=== PATIENT | male | born 1945 | race Caucasian/White ===

== ENCOUNTER 2019-09-01 12:01 | Inpatient (IN) | payer MEDICARE, OTHER ==
[~2019-09-01] VITALS: Ht 177.8 cm; Wt 87.5 kg
[~2019-09-01 12:01] MED LIST: CYAN100023 PO; DONE10TA40 PO; RIS1T PO; TEMA30CA PO
[2019-09-01] MEDS ORDERED: SODIUM CHLORIDE 0.9% 500 ML IV ONE (12:40)
[2019-09-01 13:22] LABS: Basophils # (auto) 0 uL; Basophils % (auto) 0.2 % (0.0-2.0); Eosinophils # (auto) 0 uL; Eosinophils % (auto) 0.1 % (0.0-7.0); Hematocrit 33.8 % (41.0-53.0); Hemoglobin 10.9 g/dL (13.5-17.5); Lymphocytes # (auto) 1.1 uL; Lymphocytes % (auto) 11.6 % (10.0-50.0); Mean Corpuscular Hemoglobin 31.7 pg (28.0-32.0); Mean Corpuscular Hgb Conc. 32.2 g/dL (32.0-36.0); Mean Corpuscular Volume 98.4 fL (80.0-100.0); Monocytes # (auto) 0.7 uL; Monocytes % (auto) 6.9 % (0.0-12.0); Neutrophils # (auto) 7.9 uL; Neutrophils % (auto) 81.2 % (37.0-80.0); Platelet Count (auto) 277 10^3/uL (140-450); Red Blood Cells 3.44 10^6/uL (4.5-5.90); Red Cell Distribution Width 14.3 % (11.8-14.3); White Blood Cell 9.8 10^3/uL (4.4-10.8)
[2019-09-01 13:43] LABS: Alanine Aminotransferase 10 U/L (16-61); Albumin 2.5 g/dL (3.4-5.0); Anion Gap 8 (5-15); Aspartate Aminotransferase 11 U/L (15-37); Blood Urea Nitrogen 15 mg/dL (7-18); Calcium 8.5 mg/dL (8.5-10.1); Carbon Dioxide 26 mmol/L (21-32); Chloride 110 mmol/L (98-107); Glucose 133 mg/dL (74-106); Potassium 3.4 mmol/L (3.5-5.1); Sodium 144 mmol/L (136-145)
[2019-09-01 13:47] LABS: Alkaline Phosphatase 71 U/L (45-117); BUN/Creatinine Ratio 20.3; Bilirubin, Total 0.2 mg/dL (0.2-1.0); GFR African American 133 mL/min; GFR Non-African American 110 mL/min; Total Protein 6.9 g/dL (6.4-8.2)
[2019-09-01 14:08] LABS: Urine Bacteria MANY /hpf (None Seen); Urine Blood 2+ /uL (Negative); Urine Hyaline Cast MANY /lpf (0 - 2); Urine Mucus FEW (None Seen); Urine Specific Gravity 1.017 (1.001-1.035); Urine WBC 1929 /hpf (0 - 3); Urine WBC Clumps PRESENT /hpf (None Seen)
[2019-09-01] MEDS ORDERED: cefTRIAXone 1GM/50ML D5W 50 ML IV ONE (17:00)
[2019-09-01] MEDS: SODIUM CHLORIDE 0.9% 1,000 ML IV SCH ×2 (17:38→18:46)
[2019-09-01] MEDS ORDERED: MORPHINE SULF INJ 2 MG/ML SYRINGE 1ML IV PRN ×2 (17:45)
[2019-09-01] MEDS ORDERED: NITROGLYCERIN 0.4 MG SL TAB SL PRN (17:45)
[2019-09-01] MEDS ORDERED: ACETAMINOPHEN 500 MG TAB PO PRN (17:45)
[2019-09-01] MEDS ORDERED: ONDANSETRON HCL 4 MG/2 ML VIAL IV PRN (17:45)
[2019-09-01] MEDS ORDERED: POTASSIUM EFFERVESENT TAB 25 MEQ PO ONE (18:00)
[2019-09-01] MEDS: ENSURE CLEAR Mixed Berry 8oz Carton PO SCH (18:00)
[2019-09-01] MEDS ORDERED: risperiDONE 1 MG TAB PO SCH (18:00)
[2019-09-01] MEDS: HYDROcodone-ACET 5/325MG TAB PO PRN (18:07)
[2019-09-01 20:15] VITALS: BP 139/93
[2019-09-01 20:46] VITALS: BP 139/93
[2019-09-01] MEDS ORDERED: PNEUMOCOCCAL VACC POLYS 25 MCG/0.5 ML VIAL IM SCH (21:15)
[2019-09-01] MEDS: DONEPEZIL HYDROCHLORIDE 5 MG TAB PO SCH (21:31)
[2019-09-02 04:46] VITALS: BP 133/84
[2019-09-02] MEDS: HYDROcodone-ACET 5/325MG TAB PO PRN ×2 (06:08→16:57)
[2019-09-02 06:30] LABS: Basophils # (auto) 0 uL; Basophils % (auto) 0.2 % (0.0-2.0); Eosinophils # (auto) 0.1 uL; Eosinophils % (auto) 1.6 % (0.0-7.0); Hematocrit 32.3 % (41.0-53.0); Hemoglobin 10.7 g/dL (13.5-17.5); Lymphocytes % (auto) 38.2 % (10.0-50.0); Mean Corpuscular Hemoglobin 32.2 pg (28.0-32.0); Mean Corpuscular Volume 97.6 fL (80.0-100.0); Monocytes # (auto) 0.7 uL; Neutrophils # (auto) 4.1 uL; Nucleated Red Blood Cells % 0.1 %; Platelet Count (auto) 260 10^3/uL (140-450); Red Blood Cells 3.31 10^6/uL (4.5-5.90)
[2019-09-02 06:51] LABS: Calcium 8.7 mg/dL (8.5-10.1); Potassium 3.9 mmol/L (3.5-5.1)
[2019-09-02 06:53] LABS: BUN/Creatinine Ratio 25.4
[2019-09-02 08:00] VITALS: BP 121/79
[2019-09-02 09:00] VITALS: BP 121/79
[2019-09-02] MEDS: cefTRIAXone 1GM/50ML D5W 50 ML IV SCH (09:29)
[2019-09-02] MEDS: SODIUM CHLORIDE 0.9% 1,000 ML IV SCH ×2 (09:38→15:12)
[2019-09-02] MEDS: FAMOTIDINE 20 MG TAB PO SCH (10:10)
[2019-09-02] MEDS: ENSURE CLEAR Mixed Berry 8oz Carton PO SCH ×3 (10:21→18:00)
[2019-09-02 13:00] VITALS: BP 128/72
[2019-09-02] MEDS ORDERED: APIXABAN 5 MG TAB PO ONE (14:30)
[2019-09-02 17:00] VITALS: BP 107/78
[2019-09-02 17:28] LABS: % Iron Saturation 16.8 % (20-55)
[2019-09-02 21:44] VITALS: BP 101/64
[2019-09-02] MEDS: DONEPEZIL HYDROCHLORIDE 5 MG TAB PO SCH (22:08)
[2019-09-02] MEDS: APIXABAN 5 MG TAB PO SCH (22:09)
[2019-09-03] MEDS: SODIUM CHLORIDE 0.9% 1,000 ML IV SCH ×3 (00:32→12:45)
[2019-09-03] MEDS: HYDROcodone-ACET 5/325MG TAB PO PRN ×3 (04:20→22:56)
[2019-09-03 04:51] VITALS: BP 128/81
[2019-09-03 05:59] LABS: Basophils # (auto) 0 uL; Basophils % (auto) 0.3 % (0.0-2.0); Eosinophils # (auto) 0.2 uL; Eosinophils % (auto) 2.7 % (0.0-7.0); Hematocrit 30.8 % (41.0-53.0); Hemoglobin 10.3 g/dL (13.5-17.5); Lymphocytes # (auto) 2.9 uL; Lymphocytes % (auto) 45.9 % (10.0-50.0); Mean Corpuscular Hemoglobin 32.4 pg (28.0-32.0); Mean Corpuscular Hgb Conc. 33.3 g/dL (32.0-36.0); Mean Corpuscular Volume 97.3 fL (80.0-100.0); Monocytes # (auto) 0.5 uL; Monocytes % (auto) 8.3 % (0.0-12.0); Neutrophils # (auto) 2.7 uL; Neutrophils % (auto) 42.8 % (37.0-80.0); Nucleated Red Blood Cells % 0.1 %; Platelet Count (auto) 263 10^3/uL (140-450); Red Blood Cells 3.17 10^6/uL (4.5-5.90); Red Cell Distribution Width 14.4 % (11.8-14.3); White Blood Cell 6.3 10^3/uL (4.4-10.8)
[2019-09-03 06:30] LABS: BUN/Creatinine Ratio 33.3; Calcium 8.2 mg/dL (8.5-10.1); Magnesium 1.8 mg/dL (1.6-2.6); Potassium 3.7 mmol/L (3.5-5.1)
[2019-09-03 08:00] VITALS: BP 127/67
[2019-09-03] MEDS: ENSURE CLEAR Mixed Berry 8oz Carton PO SCH ×3 (08:00→18:29)
[2019-09-03 09:00] VITALS: BP 127/67
[2019-09-03] MEDS: cefTRIAXone 1GM/50ML D5W 50 ML IV SCH (10:33)
[2019-09-03] MEDS: FAMOTIDINE 20 MG TAB PO SCH (10:34)
[2019-09-03] MEDS: APIXABAN 5 MG TAB PO SCH ×2 (10:37→21:39)
[2019-09-03] MEDS ORDERED: MAGNESIUM SULFATE 1GM/100ML 100 ML IV ONE (12:45)
[2019-09-03] MEDS ORDERED: POTASSIUM CHL 20 Meq TABLET PO ONE (12:45)
[2019-09-03 13:00] VITALS: BP 136/68
[2019-09-03] MEDS: AMOXICILLIN/CLAVULAN 500 MG TAB PO SCH ×2 (14:00→21:40)
[2019-09-03] MEDS ORDERED: OMNIPAQUE ORAL SOLN 500ml 12mg/ml PO ONE (15:58)
[2019-09-03 17:00] VITALS: BP 143/88
[2019-09-03] MEDS ORDERED: IOHEXOL 300 MG/ML 100ML BOTTLE IJ ONE (17:38)
[2019-09-03] MEDS: PROMETHAZINE HCL 25 MG/ML 1ML IV PRN (18:29)
[2019-09-03] MEDS: DONEPEZIL HYDROCHLORIDE 5 MG TAB PO SCH (21:38)
[2019-09-03 22:00] VITALS: BP 138/90
[2019-09-04] MEDS: SODIUM CHLORIDE 0.9% 1,000 ML IV SCH (03:03)
[2019-09-04 05:00] VITALS: BP_SYST 127; BP_SYST 96; BP_DIAS 63; BP_DIAS 72
[2019-09-04] MEDS: D5W/SOD CHLO 0.9% 1,000 ML IV SCH ×2 (05:32→18:09)
[2019-09-04] MEDS: AMOXICILLIN/CLAVULAN 500 MG TAB PO SCH ×3 (05:33→21:10)
[2019-09-04 07:01] LABS: Magnesium 1.9 mg/dL (1.6-2.6); Potassium 3.7 mmol/L (3.5-5.1)
[2019-09-04] MEDS: ENSURE CLEAR Mixed Berry 8oz Carton PO SCH ×3 (08:00→18:09)
[2019-09-04 09:00] VITALS: BP 149/89
[2019-09-04] MEDS: FAMOTIDINE 20 MG TAB PO SCH (10:07)
[2019-09-04] MEDS: APIXABAN 5 MG TAB PO SCH ×2 (10:07→21:10)
[2019-09-04] MEDS: PROMETHAZINE HCL 25 MG/ML 1ML IV PRN (10:40)
[2019-09-04 12:00] VITALS: BP 135/76
[2019-09-04] MEDS ORDERED: POTASSIUM CHL 20MEQ/100ML 100 ML IV ONE (12:45)
[2019-09-04] MEDS ORDERED: MAGNESIUM SULFATE 1GM/100ML 100 ML IV ONE (12:45)
[2019-09-04] MEDS ORDERED: LACTULOSE 20Gm/30ML SOLN PO PRN (12:45)
[2019-09-04] MEDS ORDERED: PANTOPRAZOLE 40 MG TAB PO ONE (12:45)
[2019-09-04 17:00] VITALS: BP 135/67
[2019-09-04] MEDS: DONEPEZIL HYDROCHLORIDE 5 MG TAB PO SCH (21:09)
[2019-09-04] MEDS: DOCUSATE SOD 100 MG CAP PO SCH (21:10)
[2019-09-04] MEDS: PANTOPRAZOLE 40 MG TAB PO SCH (21:11)
[2019-09-04 22:00] VITALS: BP 130/77
[2019-09-05] MEDS: PROMETHAZINE HCL 25 MG/ML 1ML IV PRN (01:58)
[2019-09-05] MEDS: HYDROcodone-ACET 5/325MG TAB PO PRN ×2 (04:20→22:07)
[2019-09-05] MEDS: D5W/SOD CHLO 0.9% 1,000 ML IV SCH (04:20)
[2019-09-05] MEDS: AMOXICILLIN/CLAVULAN 500 MG TAB PO SCH ×2 (05:35→14:33)
[2019-09-05 05:42] VITALS: BP 141/78
[2019-09-05 05:52] LABS: Basophils # (auto) 0 uL; Basophils % (auto) 0.4 % (0.0-2.0); Eosinophils # (auto) 0.2 uL; Hematocrit 29.6 % (41.0-53.0); Lymphocytes # (auto) 2.3 uL; Mean Corpuscular Hemoglobin 33.2 pg (28.0-32.0); Mean Corpuscular Hgb Conc. 33.9 g/dL (32.0-36.0); Monocytes # (auto) 0.4 uL; Neutrophils # (auto) 2.8 uL; Neutrophils % (auto) 48.6 % (37.0-80.0); Platelet Count (auto) 248 10^3/uL (140-450); Red Blood Cells 3.02 10^6/uL (4.5-5.90); Red Cell Distribution Width 14.3 % (11.8-14.3); White Blood Cell 5.7 10^3/uL (4.4-10.8)
[2019-09-05 06:10] LABS: BUN/Creatinine Ratio 16.7; Calcium 8.1 mg/dL (8.5-10.1); Potassium 3.7 mmol/L (3.5-5.1)
[2019-09-05 09:00] VITALS: BP 125/67
[2019-09-05] MEDS: PANTOPRAZOLE 40 MG TAB PO SCH ×2 (10:51→22:03)
[2019-09-05] MEDS: DOCUSATE SOD 100 MG CAP PO SCH ×2 (10:51→22:03)
[2019-09-05] MEDS: ENSURE CLEAR Mixed Berry 8oz Carton PO SCH ×3 (10:51→18:22)
[2019-09-05] MEDS: APIXABAN 5 MG TAB PO SCH ×2 (10:51→22:03)
[2019-09-05 13:00] VITALS: BP 127/64
[2019-09-05 16:50] VITALS: BP 123/73
[2019-09-05] MEDS: D5W/SOD CHL 0.45%/KCL 20MEQ 1,000 ML IV SCH (18:22)
[2019-09-05 22:00] VITALS: BP 136/75
[2019-09-05] MEDS: AMOXICILLIN TRIHYDRATE 250 MG CAP PO SCH (22:02)
[2019-09-05] MEDS: DONEPEZIL HYDROCHLORIDE 5 MG TAB PO SCH (22:03)
[2019-09-06] MEDS: HYDROcodone-ACET 5/325MG TAB PO PRN ×2 (04:16→22:08)
[2019-09-06 05:00] VITALS: BP 140/74
[2019-09-06] MEDS: AMOXICILLIN TRIHYDRATE 250 MG CAP PO SCH ×3 (06:15→22:06)
[2019-09-06 09:35] VITALS: BP 144/78
[2019-09-06] MEDS: ENSURE CLEAR Mixed Berry 8oz Carton PO SCH ×3 (10:28→18:00)
[2019-09-06] MEDS: APIXABAN 5 MG TAB PO SCH ×2 (10:29→22:07)
[2019-09-06] MEDS: D5W/SOD CHL 0.45%/KCL 20MEQ 1,000 ML IV SCH (10:29)
[2019-09-06] MEDS: DOCUSATE SOD 100 MG CAP PO SCH ×2 (10:29→22:07)
[2019-09-06] MEDS: PANTOPRAZOLE 40 MG TAB PO SCH ×2 (10:30→22:07)
[2019-09-06 13:00] VITALS: BP 155/83
[2019-09-06] MEDS ORDERED: PANT40T PO (14:09)
[2019-09-06] MEDS ORDERED: AMOX500T92 PO (14:09)
[2019-09-06] MEDS ORDERED: APIX5TAB PO (14:09)
[2019-09-06 17:00] VITALS: BP 153/71
[2019-09-06 22:00] VITALS: BP 142/86
[2019-09-06] MEDS: DONEPEZIL HYDROCHLORIDE 5 MG TAB PO SCH (22:06)
[2019-09-07] MEDS: HYDROcodone-ACET 5/325MG TAB PO PRN ×2 (04:14→10:42)
[2019-09-07] MEDS: D5W/SOD CHL 0.45%/KCL 20MEQ 1,000 ML IV SCH (04:14)
[2019-09-07 05:00] VITALS: BP 139/88
[2019-09-07] MEDS: AMOXICILLIN TRIHYDRATE 250 MG CAP PO SCH (06:00)
[2019-09-07] MEDS: ENSURE CLEAR Mixed Berry 8oz Carton PO SCH (08:00)
[2019-09-07 08:55] VITALS: BP 139/80
[2019-09-07] MEDS: PANTOPRAZOLE 40 MG TAB PO SCH (09:33)
[2019-09-07] MEDS: APIXABAN 5 MG TAB PO SCH (09:33)
[2019-09-07] MEDS: DOCUSATE SOD 100 MG CAP PO SCH (09:34)
[2019-09-07] MEDS ORDERED: AMOXICILLIN/CLAVULAN 500 MG TAB PO SCH (14:00)
[2019-09-09] MEDS ORDERED: APIXABAN 5 MG TAB PO SCH (10:00)
== END 2019-09-07 12:15 | DRG 689 ==
LOC: EDBD 12:01 → ER 12:10 → OVERFLOW 12:11 → WEST WING 20:14
PROVIDERS: ADMIT Nurse Practitioner Acute Care; ATTEND Internal Medicine
DX: N30.90 Cystitis, unspecified without hematuria (principal); E43 Unspecified severe protein-calorie malnutrition; K59.39 Other megacolon; I82.411 Acute embolism and thrombosis of right femoral vein; D64.9 Anemia, unspecified; E11.9 Type 2 diabetes mellitus without complications; E87.6 Hypokalemia; F03.90 Unspecified dementia, unspecified severity, without behavioral disturbance, psychotic disturbance, mood disturbance, and anxiety; F20.9 Schizophrenia, unspecified; I10 Essential (primary) hypertension; J44.9 Chronic obstructive pulmonary disease, unspecified; K21.9 Gastro-esophageal reflux disease without esophagitis; N40.0 Benign prostatic hyperplasia without lower urinary tract symptoms; B95.61 Methicillin susceptible Staphylococcus aureus infection as the cause of diseases classified elsewhere; M19.90 Unspecified osteoarthritis, unspecified site; F31.9 Bipolar disorder, unspecified; K29.70 Gastritis, unspecified, without bleeding; L98.499 Non-pressure chronic ulcer of skin of other sites with unspecified severity; Z68.27 Body mass index [BMI] 27.0-27.9, adult; Z79.01 Long term (current) use of anticoagulants
CPT/HCPCS: 36415; 71045; 74177; 80048; 80053; 81001; 82607; 82746; 83540; 83550; 83735; 84132; 84484; 85025; 85379; 87086; 87088; 87186; 93005; 93970; 97110; 97530; G0378; J0696; J2405; J3480; J7042

== ENCOUNTER 2020-03-31 17:04 | Inpatient (IN) | payer MEDICARE, OTHER ==
[~2020-03-31] VITALS: Ht 180.3 cm; Wt 76.8 kg
[~2020-03-31 17:04] MED LIST changes: +AMOX500T92 PO; +APIX5TAB PO; +PANT40T PO
[2020-03-31 19:14] LABS: Basophils # (auto) 0 10 ^3/uL (0-0.2); Basophils % (auto) 0.3 % (0.0-2.0); Eosinophils # (auto) 0.1 10 ^3/uL (0-0.8); Eosinophils % (auto) 0.9 % (0.0-7.0); Hematocrit 35.4 % (41.0-53.0); Hemoglobin 11.6 g/dL (13.5-17.5); Lymphocytes # (auto) 1.9 10 ^3/uL (0.4-5.4); Lymphocytes % (auto) 20.1 % (10.0-50.0); Mean Corpuscular Hemoglobin 32.8 pg (28.0-32.0); Mean Corpuscular Hgb Conc. 32.7 g/dL (32.0-36.0); Mean Corpuscular Volume 100.3 fL (80.0-100.0); Monocytes # (auto) 0.6 10 ^3/uL (0-1.3); Monocytes % (auto) 6.9 % (0.0-12.0); Neutrophils # (auto) 6.6 10 ^3/uL (1.6-8.6); Neutrophils % (auto) 71.8 % (37.0-80.0); Nucleated Red Blood Cells % 0.1 %; Platelet Count (auto) 225 10^3/uL (140-450); Red Blood Cells 3.53 10^6/uL (4.5-5.90); Red Cell Distribution Width 14.6 % (11.8-14.3); White Blood Cell 9.2 10^3/uL (4.4-10.8)
[2020-03-31 19:29] LABS: INR 1.02 (0.9-1.15); Partial Thromboplastin Time 34.9 sec (23.64-32.05)
[2020-03-31 19:31] LABS: Calcium 8.6 mg/dL (8.5-10.1); Potassium 3.3 mmol/L (3.5-5.1)
[2020-03-31 19:34] LABS: BUN/Creatinine Ratio 29.7; Bilirubin, Total 0.4 mg/dL (0.2-1.0)
[2020-03-31 19:38] LABS: Urine Bacteria MANY /hpf (None Seen); Urine Blood 2+ /uL (Negative); Urine Mucus FEW (None Seen); Urine Specific Gravity 1.022 (1.001-1.035); Urine WBC 237 /hpf (0 - 3)
[2020-03-31] MEDS ORDERED: cefTRIAXone 1GM/50ML D5W 50 ML IV ONE (20:15)
[2020-03-31] MEDS ORDERED: ONDANSETRON HCL 4 MG/2 ML VIAL IV PRN (22:00)
[2020-03-31] MEDS ORDERED: ACETAMINOPHEN 325 MG TAB PO PRN (22:00)
[2020-03-31 22:55] VITALS: BP 145/74
--- NOTE | 2020-03-31 22:55 | NUR ---
MS admit from ER PAVANEMMA admitted to tele/MS after NO SBAR WAS received. Patient oriented to JOSE WILKINS primary RN, unit, room, bed, and unit policies regarding patient care and visiting hours. Patient is A/O x4, skin is overall intact, on RA, REJ 20g running NS at 125 mls/hr, serna in place and hung below bladder draining blood clots, muscous threads, and is hazy in appearance. Call light is within reach, fall precautions are in place, bed is in the lowest position, side rails up x2, bed alarm is on. Patient weighed by bedscale and encouraged to call if they need something. All questions and concerns addressed, patient verbalized understanding.
--- NOTE | 2020-03-31 23:30 | NUR ---
Unable to obtain list of medications, patient does not remember the medications he takes and he does not have a list of medications with him.
--- NOTE | 2020-03-31 23:45 | NUR ---
Wound photo taken of left great toe.
[2020-04-01] VITALS: BP 145/74
[2020-04-01] MEDS: FAMOTIDINE 20 MG TAB PO SCH ×3 (00:14→22:17)
[2020-04-01] MEDS: SODIUM CHLORIDE 0.9% 1,000 ML IV SCH ×2 (00:14→19:43)
--- NOTE | 2020-04-01 00:58 | NUR ---
MRSA NARES COLLECTED AND SENT TO LAB VIA BULLET SYSTEM.
[2020-04-01 05:03] VITALS: BP 114/63
[2020-04-01 06:15] LABS: Basophils # (auto) 0 10 ^3/uL (0-0.2); Basophils % (auto) 0.5 % (0.0-2.0); Eosinophils # (auto) 0.1 10 ^3/uL (0-0.8); Eosinophils % (auto) 1.3 % (0.0-7.0); Hematocrit 31.4 % (41.0-53.0); Hemoglobin 10.6 g/dL (13.5-17.5); Lymphocytes # (auto) 1.4 10 ^3/uL (0.4-5.4); Lymphocytes % (auto) 19.7 % (10.0-50.0); Mean Corpuscular Hemoglobin 33.7 pg (28.0-32.0); Mean Corpuscular Hgb Conc. 33.7 g/dL (32.0-36.0); Monocytes # (auto) 0.6 10 ^3/uL (0-1.3); Neutrophils % (auto) 70.5 % (37.0-80.0); Nucleated Red Blood Cells % 0.1 %; Platelet Count (auto) 211 10^3/uL (140-450); Red Blood Cells 3.14 10^6/uL (4.5-5.90); Red Cell Distribution Width 14.2 % (11.8-14.3); White Blood Cell 7.1 10^3/uL (4.4-10.8)
[2020-04-01 06:23] LABS: Calcium 8.3 mg/dL (8.5-10.1)
[2020-04-01 06:25] LABS: BUN/Creatinine Ratio 38.6
--- NOTE | 2020-04-01 06:25 | NUR ---
Critical lab value of Potassium 2.7.
[2020-04-01 06:29] LABS: Potassium 2.7 mmol/L (3.5-5.1)
--- NOTE | 2020-04-01 06:33 | NUR ---
Paged hospitalist for critical potassium of 2.7
--- NOTE | 2020-04-01 06:56 | NUR ---
Hospitalist called back, new order received for Potassium 40 MEQ PO one time. See order history.
[2020-04-01] MEDS ORDERED: POTASSIUM CHL 20 Meq TABLET PO ONE (07:00)
[2020-04-01 09:15] VITALS: BP 134/69
--- NOTE | 2020-04-01 10:00 | NUR ---
WOUND CARE NOTE: Wound care in to see patient per wound care request regarding L great toe wound that are noted present on admission. Bedside nurse took photograph of patient's wound upon admission for reference. Patient is 74 years old male with admitting diagnosis of Acute Urinary Retention, BPH. Patient is resting in bed in Rm. 277A. Patient is awake, follow simple direction but not oriented. Patient has history of Dementia, poor historian and valentin not remember how he got the L great toe wound. Patient appears to be in no pain using Bourgeois Stacy Faces Pain Scale. He's able to assist in turning and repositioning upon given direction. His Chapo score is 15. Patient's L great toe noted with 1x0.6cm wound, covered with blood clot. Josey wound is bright and dark red more prominently at base of L great toe, minimal sanguinous drainage noted. Patient's L great toe wound appears to be related to trauma on toe as the toe is right and dark red. Cleansed L great toe wound with wound cleanser, patted dry with gauze, applied Thera honey gel, covered with Optifoam, secured with CoBan. Patient is incontinent and soiled the care pad. Josey care given and applied Barrier cream to sacral buttocks as preventative. No pressure injury noted. Repositioned patient for comfort facing his Rt side, redistributed pressure points with pillows. Patient tolerated well. Nurse assistant professor of art at bedside. RECOMMENDATION: Nursing to continue with BID/PRN cleaning and application of Barrier cream to sacral buttocks as preventative, EOD/PRN dressing change to L great toe wound per MD order, frequent turning and repositioning schedule as condition permits, redistribute pressure points with pillows,elevate heels on pillow, continue monitoring by wound care while Chapo score is < 18. Addendum: 04/01/20 at 1339 by Emmanuelle Schroeder RN Amended: Links added.
--- NOTE | 2020-04-01 10:00 | NUR ---
F/C DISCONTINUED. NEW F/C PROCESS STRIPPER [address] ENRIQUEZ ORDERS.
[2020-04-01 13:00] VITALS: BP 121/73
[2020-04-01] MEDS ORDERED: cefTRIAXone 1GM/50ML D5W 50 ML IV ONE (13:00)
[2020-04-01] MEDS ORDERED: LACTULOSE 20Gm/30ML SOLN PO PRN (15:15)
[2020-04-01] MEDS: POTASSIUM EFFERVESENT TAB 25 MEQ PO ONE ×2 (16:10→20:21)
--- NOTE | 2020-04-01 16:12 | NUR ---
PAGED DR VENCES, AWAITING RETURN CALL TO UPDATE HIM PER DR. ENRIQUEZ'S REQUESTS.
--- NOTE | 2020-04-01 16:22 | NUR ---
SPOKE WITH DR. VENCES ABOUT DR. ENRIQUEZ REQUEST TO DISCONTINUE ELIQUIS FOR 3 DAYS BEFORE SUPRAPUBIC CATHETER PLACEMENT. DR. ENRIQUEZ INFORMED ME THAT IT CAN BE DONE ON AN OUTPATIENT BASIS AND THAT THE PATIENT IS ALREADY ON THE SCHEDULE. DR. VENCES AGREED TO D/C ELIQUIS AND PLAN TO DISCHARGE BACK TO SNF WITH F/U TO UROLOGY SATURDAY. PATIENT WAS INFORMED OF THIS POC CHANGE.
[2020-04-01 17:00] VITALS: BP 136/76
[2020-04-01] MEDS: OXYBUTYNIN CHL 5 MG TAB PO SCH (18:00)
[2020-04-01 19:26] LABS: BUN/Creatinine Ratio 31.5; Calcium 8.4 mg/dL (8.5-10.1); Potassium 3.2 mmol/L (3.5-5.1)
[2020-04-01] MEDS: Ensure HIGH Protein Chocolate 8oz Bottle PO SCH (19:43)
[2020-04-01] MEDS: HYDROcodone-ACET 5/325MG TAB PO PRN (20:22)
[2020-04-01 20:40] LABS: Basophils # (auto) 0 10 ^3/uL (0-0.2); Basophils % (auto) 0.7 % (0.0-2.0); Eosinophils # (auto) 0.1 10 ^3/uL (0-0.8); Eosinophils % (auto) 0.8 % (0.0-7.0); Hematocrit 35.3 % (41.0-53.0); Hemoglobin 11.3 g/dL (13.5-17.5); Lymphocytes # (auto) 1.8 10 ^3/uL (0.4-5.4); Lymphocytes % (auto) 27.1 % (10.0-50.0); Mean Corpuscular Hemoglobin 32.1 pg (28.0-32.0); Mean Corpuscular Volume 100.5 fL (80.0-100.0); Monocytes # (auto) 0.5 10 ^3/uL (0-1.3); Monocytes % (auto) 6.7 % (0.0-12.0); Neutrophils # (auto) 4.3 10 ^3/uL (1.6-8.6); Neutrophils % (auto) 64.7 % (37.0-80.0); Nucleated Red Blood Cells % 0.1 %; Platelet Count (auto) 234 10^3/uL (140-450); Red Blood Cells 3.51 10^6/uL (4.5-5.90); Red Cell Distribution Width 14.3 % (11.8-14.3); White Blood Cell 6.7 10^3/uL (4.4-10.8)
[2020-04-01 22:00] VITALS: BP 143/84
[2020-04-01] MEDS ORDERED: APIXABAN 5 MG TAB PO SCH (22:00)
[2020-04-01] MEDS: DOCUSATE SOD 100 MG CAP PO SCH (22:00)
[2020-04-01] MEDS: risperiDONE 1 MG TAB PO SCH (22:17)
[2020-04-02] MEDS: HYDROcodone-ACET 5/325MG TAB PO PRN ×3 (01:26→20:15)
[2020-04-02] MEDS: SODIUM CHLORIDE 0.9% 1,000 ML IV SCH ×2 (01:26→13:18)
--- NOTE | 2020-04-02 03:55 | NUR ---
URINE SPECIMEN SENT TO LAB.
[2020-04-02 05:00] VITALS: BP 109/68
[2020-04-02 05:35] LABS: Basophils # (auto) 0 10 ^3/uL (0-0.2); Basophils % (auto) 0.6 % (0.0-2.0); Eosinophils # (auto) 0.1 10 ^3/uL (0-0.8); Eosinophils % (auto) 1.8 % (0.0-7.0); Hematocrit 32.2 % (41.0-53.0); Hemoglobin 10.6 g/dL (13.5-17.5); Lymphocytes # (auto) 2.3 10 ^3/uL (0.4-5.4); Lymphocytes % (auto) 39.6 % (10.0-50.0); Mean Corpuscular Hemoglobin 32.9 pg (28.0-32.0); Mean Corpuscular Hgb Conc. 32.9 g/dL (32.0-36.0); Monocytes # (auto) 0.4 10 ^3/uL (0-1.3); Monocytes % (auto) 7.4 % (0.0-12.0); Neutrophils # (auto) 2.9 10 ^3/uL (1.6-8.6); Neutrophils % (auto) 50.6 % (37.0-80.0); Nucleated Red Blood Cells % 0.2 %; Platelet Count (auto) 228 10^3/uL (140-450); Red Blood Cells 3.22 10^6/uL (4.5-5.90); Red Cell Distribution Width 14.1 % (11.8-14.3); White Blood Cell 5.8 10^3/uL (4.4-10.8)
[2020-04-02 05:55] LABS: Potassium 3.1 mmol/L (3.5-5.1)
[2020-04-02 06:00] LABS: BUN/Creatinine Ratio 33.3; Calcium 8.2 mg/dL (8.5-10.1)
[2020-04-02] MEDS: Ensure HIGH Protein Chocolate 8oz Bottle PO SCH ×3 (07:47→18:04)
--- NOTE | 2020-04-02 08:00 | NUR ---
Opening Shift Note Assumed care of patient, awake, alert and oriented X2, to self and surroundings. IV to left external jugular, 20 gauge, patent and saline locked. Urethral Verde catheter draining straw, clear urine to gravity. Left great toe dressing clean, dry and intact. No S/S of distress/SOB, complains of lower abdominal pain, 6/10, medicated with prescribed pain medication. Instructed on POC and to call for assist PRN, verbalized understanding. Bed locked, in lowest position, call light within reach, will continue to monitor for changes Q1hr and PRN.
[2020-04-02] MEDS: OXYBUTYNIN CHL 5 MG TAB PO SCH ×2 (08:16→18:04)
[2020-04-02] MEDS: cefTRIAXone 1GM/50ML D5W 50 ML IV SCH (08:56)
[2020-04-02 09:00] VITALS: BP 132/73
[2020-04-02] MEDS: DOCUSATE SOD 100 MG CAP PO SCH ×2 (09:41→22:23)
[2020-04-02] MEDS: FAMOTIDINE 20 MG TAB PO SCH ×2 (10:59→22:23)
[2020-04-02] MEDS: CYANOCOBALAMIN 500 MCG TAB PO SCH (10:59)
[2020-04-02] MEDS: DONEPEZIL HYDROCHLORIDE 5 MG TAB PO SCH (10:59)
[2020-04-02] MEDS ORDERED: POTASSIUM EFFERVESENT TAB 25 MEQ PO ONE (12:15)
--- NOTE | 2020-04-02 12:28 | NUR ---
ROUNDS Dr Bradshaw at bedside for rounds, new orders received and followed through. Patient updated on plan of care, verbalized understanding.
[2020-04-02 14:00] VITALS: BP 120/73
--- NOTE | 2020-04-02 15:49 | NUR ---
Nutrition Assessment Notes Please refer to link for full assessment notes. Est Energy needs: 1814-9399 kcals (20-23 kcal/kgBW) Est Protein needs: 76-91 gms/day (1.0-1.2 gm/kgBW) d/t wound Will continue to monitor and reassess prn. Addendum: 04/02/20 at [address] Amended: Links added.
--- NOTE | 2020-04-02 15:52 | NUR ---
DISCHARGE Per Jennifer with [facility], we are responsible for transportation to get patient back to [facility]. Per Dina, Analytical Laboratory Technician, Kenzie Matson is the P.O.C. at [facility]. Message left on Kenzie Matson voicemail to return call [phone]. Per Dina, Analytical Laboratory Technician, patient's family will have to pay for transport or transport patient to [facility]. Awaiting return call.
--- NOTE | 2020-04-02 16:07 | NUR ---
FAMILY Return call received from Nabila Matson. Informed patient needs transportation back to [facility]. Per Kenzie, she will call [facility] to have them arrange transportation. Awaiting return call.
--- NOTE | 2020-04-02 16:15 | NUR ---
Call placed to Osiris with [facility], per Osiris, they use [facility] for transportation. Call placed to [facility], spoke to Claudette, informed patient needs to be picked up and transported back to [facility], and per Osiris, they will pay for the transportation. Per Claudette, [facility] needs to arrange the transportation since they will be paying. Claudette informed me she will place patient on Will-Call until [facility] sets up transport, she will then call me with pharmacy picking technician time. Informed Osiris with [facility], verbalized understanding and that she will contact [facility].
[2020-04-02 17:00] VITALS: BP 123/74
--- NOTE | 2020-04-02 18:03 | NUR ---
Call received from Jenny George with [facility]. Per Doris, she will contact [facility] to set up transport and call us back to updated on picker / packer time. Awaiting return call.
--- NOTE | 2020-04-02 18:52 | NUR ---
IV removal IV DC'd with to left EJ due to patient accidently pulling it out, sterile technique used, catheter fully intact. Pressure dressing applied to site. Patient tolerated procedure well.
--- NOTE | 2020-04-02 19:19 | NUR ---
Care endorsed to MARCO Parra, night nurse.
--- NOTE | 2020-04-02 19:25 | NUR ---
Opening Shift Note Received report from Kristie LARA. Assumed care of patient, awake and alert. No S/S of distress/SOB or pain. Instructed on POC and to call for assist PRN. Fall precaution measures in place, will continue to monitor for changes Q1hr and PRN. Patient is for discharge to [facility], awaiting for transportation.
--- NOTE | 2020-04-02 20:58 | NUR ---
Call to [facility] to follow up transportation, spoke to Osiris and states transportation agency is giving her a run around on who is gonna knot picker cloth the patient. I informed Osiris that I was told by carter LARA to wait for Doris LOVE's call regarding the knot picker cloth time. Per Osiris she will speak to her DON and will call me back.
--- NOTE | 2020-04-02 21:09 | NUR ---
Doris LOVE of [facility] called and states [facility] cancelled the transportation since the patient has no BLS needs. She is trying to call the [place] transport but closed already. I told Doris that the MD ordered for BLS transport, she said she will clarify with [facility] and will call me back.
--- NOTE | 2020-04-02 21:53 | NUR ---
[facility] called and states [facility] cannot pickling solution maker the patient since the patient has no BLS needs. Doris also states she will call the [facility] tomorrow morning and will also talk to [facility] case hardener regarding transportation.
[2020-04-02 22:00] VITALS: BP 129/75
[2020-04-02] MEDS: risperiDONE 1 MG TAB PO SCH (22:23)
[2020-04-03] MEDS: HYDROcodone-ACET 5/325MG TAB PO PRN ×3 (00:09→20:23)
--- NOTE | 2020-04-03 01:00 | NUR ---
Patient refused IV insertion, states he is going home anyway. Explained the risk and benefit of IV line, patient verbalized understanding.
[2020-04-03 05:00] VITALS: BP 129/84
[2020-04-03 06:10] LABS: Hemoglobin 11.6 g/dL (13.5-17.5); White Blood Cell 5.5 10^3/uL (4.4-10.8)
[2020-04-03 06:13] LABS: Basophils # (auto) 0 10 ^3/uL (0-0.2); Basophils % (auto) 0.4 % (0.0-2.0); Eosinophils # (auto) 0.1 10 ^3/uL (0-0.8); Eosinophils % (auto) 2.5 % (0.0-7.0); Hematocrit 35.5 % (41.0-53.0); Lymphocytes # (auto) 2.5 10 ^3/uL (0.4-5.4); Mean Corpuscular Hemoglobin 33.7 pg (28.0-32.0); Mean Corpuscular Hgb Conc. 32.6 g/dL (32.0-36.0); Mean Corpuscular Volume 103.2 fL (80.0-100.0); Monocytes # (auto) 0.4 10 ^3/uL (0-1.3); Monocytes % (auto) 7.5 % (0.0-12.0); Neutrophils # (auto) 2.4 10 ^3/uL (1.6-8.6); Neutrophils % (auto) 44.6 % (37.0-80.0); Platelet Count (auto) 231 10^3/uL (140-450); Red Blood Cells 3.44 10^6/uL (4.5-5.90); Red Cell Distribution Width 14.1 % (11.8-14.3)
[2020-04-03 06:24] LABS: BUN/Creatinine Ratio 32.6; Calcium 8.3 mg/dL (8.5-10.1); Potassium 3.5 mmol/L (3.5-5.1)
--- NOTE | 2020-04-03 07:36 | NUR ---
Patient stable at this time , no pain, vitals stable. Endorsed care to Jaelyn LARA.
--- NOTE | 2020-04-03 07:52 | NUR ---
Opening Shift Note Assumed care of patient, awake and alert sitting up in bed eating breakfast. No S/S of distress/SOB or pain. Instructed on POC and to call for assist PRN, will continue to monitor for changes Q1hr and PRN.
[2020-04-03] MEDS: OXYBUTYNIN CHL 5 MG TAB PO SCH ×2 (08:18→17:42)
[2020-04-03] MEDS: Ensure HIGH Protein Chocolate 8oz Bottle PO SCH ×3 (08:18→17:47)
[2020-04-03] MEDS: cefTRIAXone 1GM/50ML D5W 50 ML IV SCH (08:18)
[2020-04-03 08:25] VITALS: BP 129/68
--- NOTE | 2020-04-03 08:55 | NUR ---
Password Patient set up password, same entered. Spoke with daughter regarding transport for patient. It has not been finalized yet. RN awaiting return call from [facility] ORDONE[facility]
[2020-04-03] MEDS: DOCUSATE SOD 100 MG CAP PO SCH ×2 (09:43→21:59)
[2020-04-03] MEDS: FAMOTIDINE 20 MG TAB PO SCH ×2 (09:43→21:59)
[2020-04-03] MEDS: CYANOCOBALAMIN 500 MCG TAB PO SCH (09:44)
[2020-04-03] MEDS: DONEPEZIL HYDROCHLORIDE 5 MG TAB PO SCH (09:44)
--- NOTE | 2020-04-03 10:05 | NUR ---
On-call Building Supplies Salesperson Retail Informed Dina to call IVAN George at [facility] at [phone].
--- NOTE | 2020-04-03 10:40 | NUR ---
Hospitalist Rounding Dr. Bradshaw rounded on patient.
--- NOTE | 2020-04-03 10:53 | NUR ---
Transport Received call back from [facility] with [facility]. They are unable to transport the patient back to [place], [facility] out of area for them. They suggested calling [facility]. Will notify upper caser.
--- NOTE | 2020-04-03 10:56 | NUR ---
Enrobing Machine Corder Credit Negotiator Dina was notified that [facility] is unable to transport patient back to [place]. She will follow up with IVAN George at [place].
[2020-04-03 12:55] VITALS: BP 128/73
--- NOTE | 2020-04-03 15:45 | NUR ---
Order for IV antibiotics noted to begin this PM. Patient does not have an IV and is refusing IV placement, states he is going home.
--- NOTE | 2020-04-03 15:57 | NUR ---
IV orders confirmed with Dr. Higginbotham Keep IV antibiotics while patient is hospitalized. Once discharged, patient may switch to PO.
--- NOTE | 2020-04-03 16:20 | NUR ---
Transportation As per Dina machine adjuster leader case trim, Doris (IVAN) is trying to arrange transportation for tomorrow 04/04.
--- NOTE | 2020-04-03 16:40 | NUR ---
Transportation Patient was notified that transportation will not be available until possibly tomorrow 04/04.
[2020-04-03 16:49] VITALS: BP 132/71
--- NOTE | 2020-04-03 19:20 | NUR ---
Opening Shift Note Received report from Jaelyn LARA. Assumed care of patient, awake and alert. No S/S of distress/SOB or pain. Instructed on POC and to call for assist PRN. Fall precaution measures in place, will continue to monitor for changes Q1hr and PRN.
--- NOTE | 2020-04-03 21:30 | NUR ---
IV insertion IV access obtained, via clean sterile technique by inserting 22 gauge catheter at R wrist after 1 attempt(s). IV secured properly. No trauma to site. Patient tolerated well.
[2020-04-03] MEDS: SODIUM CHLORIDE 0.9% 1,000 ML IV SCH (21:35)
[2020-04-03] MEDS: risperiDONE 1 MG TAB PO SCH (21:59)
[2020-04-03] MEDS: CIPROFLOXACIN 400MG/200ML 200 ML IV SCH (21:59)
[2020-04-03 22:00] VITALS: BP 142/75
[2020-04-04 05:00] VITALS: BP 120/72
[2020-04-04] MEDS: OXYBUTYNIN CHL 5 MG TAB PO SCH (08:30)
[2020-04-04] MEDS: Ensure HIGH Protein Chocolate 8oz Bottle PO SCH ×2 (08:31→13:08)
[2020-04-04] MEDS: cefTRIAXone 1GM/50ML D5W 50 ML IV SCH (08:31)
[2020-04-04 09:00] VITALS: BP 113/66
[2020-04-04] MEDS: CIPROFLOXACIN 400MG/200ML 200 ML IV SCH (09:47)
[2020-04-04] MEDS: CYANOCOBALAMIN 500 MCG TAB PO SCH (09:52)
[2020-04-04] MEDS: DONEPEZIL HYDROCHLORIDE 5 MG TAB PO SCH (09:52)
[2020-04-04] MEDS: FAMOTIDINE 20 MG TAB PO SCH (09:52)
[2020-04-04] MEDS: DOCUSATE SOD 100 MG CAP PO SCH (09:55)
[2020-04-04 13:00] VITALS: BP 141/69
--- NOTE | 2020-04-04 13:00 | NUR ---
Dr. Augustine schmitz.
--- NOTE | 2020-04-04 13:00 | NUR ---
Transportation Received call from Doris STUART) at [place], transportation will be here for patient at 1345.
[2020-04-04 13:09] VITALS: BP 141/69
--- NOTE | 2020-04-04 13:40 | NUR ---
Discharge Photo Patent refused discharge photo, stating he is ready to go back home.
--- NOTE | 2020-04-04 13:45 | NUR ---
IV removed, patient signed discharge papers. Awaiting assistance to get in wheelchair. Paged PT and long chain dyeing machine operator as Transport person states they are not allowed to touch patient.
--- NOTE | 2020-04-04 14:00 | NUR ---
Discharge instructions given as ordered. Encourage to follow up with PMD as instructed. All questions and concerns addressed. Patient verbalized understanding. Medication reconciliation form completed and copy given to patient. IV removed with catheter intact and pressure dressing applied. Patient discharged with serna catheter. Patient taken to vehicle via wheelchair with all personal belongings, accompanied by staff. No distress noted at time of departure.
--- NOTE | 2020-04-05 08:52 | NUR ---
Weekend family preservation caseworker-I received a page from nurse Kristie letting me know that this patient is to be discharged back to [facility] and needs transportation. I called [facility] and spoke with Jennifer-she referred me to speak with Jenny George, she is working on the transportation.
== END 2020-04-04 14:00 | DRG 725 ==
LOC: ER 17:04 → OVERFLOW 17:05 → WEST WING 22:54
PROVIDERS: ADMIT Nurse Practitioner; ATTEND Internal Medicine
DX: N40.1 Benign prostatic hyperplasia with lower urinary tract symptoms (principal); N17.0 Acute kidney failure with tubular necrosis; N39.0 Urinary tract infection, site not specified; E44.0 Moderate protein-calorie malnutrition; J98.11 Atelectasis; R33.8 Other retention of urine; D63.8 Anemia in other chronic diseases classified elsewhere; E11.22 Type 2 diabetes mellitus with diabetic chronic kidney disease; E78.5 Hyperlipidemia, unspecified; E87.6 Hypokalemia; F03.90 Unspecified dementia, unspecified severity, without behavioral disturbance, psychotic disturbance, mood disturbance, and anxiety; F20.9 Schizophrenia, unspecified; I12.9 Hypertensive chronic kidney disease with stage 1 through stage 4 chronic kidney disease, or unspecified chronic kidney disease; J44.9 Chronic obstructive pulmonary disease, unspecified; K21.9 Gastro-esophageal reflux disease without esophagitis; K25.9 Gastric ulcer, unspecified as acute or chronic, without hemorrhage or perforation; N18.9 Chronic kidney disease, unspecified; N31.9 Neuromuscular dysfunction of bladder, unspecified; Z86.718 Personal history of other venous thrombosis and embolism
CPT/HCPCS: 36415; 71045; 73630; 80048; 80053; 81001; 84443; 85025; 85610; 85730; 87081; 87086; 87088; 87186; 93971; G0378; J0696